=== PATIENT | male | born 1995 | race Two or more races ===

== ENCOUNTER 2017-10-19 14:51 | Emergency (ER) | payer OTHER ==
[~2017-10-19] VITALS: Ht 170.2 cm; Wt 61.7 kg
[2017-10-19] MEDS ORDERED: LABETALOL HCL100 MG (15:21)
[2017-10-19] MEDS ORDERED: CLONAZEPAM0.5 MG (15:21)
[2017-10-19] MEDS ORDERED: ESCITALOPRAM OX10 MG PO (17:38)
[2017-10-19] MEDS ORDERED: CLONAZEPAM0.5 MG PO (17:38)
== END 2017-10-19 17:43 | disposition home or self-care (01) ==
LOC: ER 14:51
DX: F41.0 Panic disorder [episodic paroxysmal anxiety] (principal); F19.180 Other psychoactive substance abuse with psychoactive substance-induced anxiety disorder